=== PATIENT | female | born 1980 | race Caucasian/White ===

== ENCOUNTER → 2021-09-24 | Outpatient (CLI) | payer OTHER, SELFPAY ==
[2021-09-24 14:55] LABS: Absolute Lymphocyte Count 2.34 X10^3/uL (0.83-4.51); Absolute Neutrophil Count 7.6 X10^3/uL (2.0-7.7); Basophil# 0.06 X10^3/uL; Basophil% 0.5 % (0-1); Eosinophil# 0.15 X10^3/uL; Eosinophils% 1.4 % (0-5); Hematocrit 38.8 % (37-47); Hemoglobin 12.2 g/dL (12.0-15.0); Lymphocyte # 2.34 X10^3/ul (0.83-4.51); Lymphocyte % 21.4 % (19-41); Mean Corp Hgb Conc 31.4 g/dL (32-36); Mean Corpuscular Hgb 26.2 pg (27.0-32.0); Mean Corpuscular Volume 83.3 fL (81-99); Mean Platelet Vol. 10.6 fl (6.2-12.0); Monocyte# 0.75 X10^3/uL; Monocyte% 6.8 % (0-10); NRBC Flagged by Analyzer 0 % (0-5); Neutrophil # 7.61 X10^3/uL (2.7-7.7); Neutrophil % 69.5 % (47-70); Platelet Count 387 K/mm3 (150-450); RBC Distribution Width CV 13.5 % (11.6-14.6); RBC Distribution Width SD 41.4 fl (35.1-43.9); Red Blood Count 4.66 M/mm3 (4.2-5.4)
[2021-09-24 15:46] LABS: HIV - WCH Non-Reactive (Nonreactive); Hepatitis B Surface Antigen Non-Reactive (Nonreactive); Hepatitis C Antibody Non-Reactive (Nonreactive); Rubella IgG Reactive (Nonreactive); Syphilis Antibodies Non-reactive
[2021-09-27 22:06] LABS: Chlamydia By Nucleic Acid AMP Negative (Negative)
[2021-09-27 23:02] LABS: Gonococcus By Nucleic Acid AMP Negative (Negative)
[2021-10-01 16:20] LABS: HPV APTIMA, High Risk Negative (Negative)
== END | disposition home or self-care (01) ==
PROVIDERS: Visit Provider Student in an Organized Health Care Education/Training Program
DX: Z34.81 Encounter for supervision of other normal pregnancy, first trimester (principal); Z12.4 Encounter for screening for malignant neoplasm of cervix; Z11.3 Encounter for screening for infections with a predominantly sexual mode of transmission
CPT/HCPCS: 36415; 85025; 86703; 86762; 86780; 86803; 87086; 87088; 87340; 87491; 87591; 87624; 88175; G0145

== ENCOUNTER → 2022-02-11 | Outpatient (CLI) | payer OTHER, SELFPAY ==
[2022-02-11 16:52] LABS: Absolute Lymphocyte Count 1.65 X10^3/uL (0.83-4.51); Absolute Neutrophil Count 8.6 X10^3/uL (2.0-7.7); Basophil# 0.02 X10^3/uL; Basophil% 0.2 % (0-1); Eosinophil# 0.11 X10^3/uL; Hematocrit 33.5 % (37-47); Hemoglobin 10.7 g/dL (12.0-15.0); Lymphocyte # 1.65 X10^3/ul (0.83-4.51); Lymphocyte % 14.8 % (19-41); Mean Corp Hgb Conc 31.9 g/dL (32-36); Mean Corpuscular Hgb 26.8 pg (27.0-32.0); Mean Corpuscular Volume 83.8 fL (81-99); Mean Platelet Vol. 10.8 fl (6.2-12.0); Monocyte% 6.3 % (0-10); NRBC Flagged by Analyzer 0 % (0-5); Neutrophil # 8.58 X10^3/uL (2.7-7.7); Neutrophil % 77.2 % (47-70); Platelet Count 295 K/mm3 (150-450); RBC Distribution Width CV 14.5 % (11.6-14.6); RBC Distribution Width SD 44.1 fl (35.1-43.9); White Blood Count 11.1 K/mm3 (4.4-11.0)
[2022-02-11 17:01] LABS: Glucose Challenge Gest 1H 50g 161 mg/dL (70-140)
== END | disposition home or self-care (01) ==
PROVIDERS: Visit Provider Student in an Organized Health Care Education/Training Program
DX: Z34.83 Encounter for supervision of other normal pregnancy, third trimester (principal)
CPT/HCPCS: 36415; 82950; 85025

== ENCOUNTER → 2022-02-15 | Outpatient (CLI) | payer OTHER, SELFPAY ==
[2022-02-15 09:17] LABS: Glucose GTT-Gestation. Fasting 92 mg/dL (<105)
[2022-02-15 11:37] LABS: Glucose GTT-Gestational 1 Hr 192 mg/dL (<190)
[2022-02-15 11:39] LABS: Glucose GTT-Gestational 2 Hr 165 mg/dL (<165)
[2022-02-15 14:14] LABS: Glucose GTT-Gestational 3 Hr 110 L (<145)
== END | disposition home or self-care (01) ==
PROVIDERS: Visit Provider Student in an Organized Health Care Education/Training Program
DX: Z34.83 Encounter for supervision of other normal pregnancy, third trimester (principal)
CPT/HCPCS: 36415; 82951; 82952

== ENCOUNTER → 2022-03-10 | Outpatient (CLI) | payer OTHER, SELFPAY | END | disposition home or self-care (01) | LOC: WOBLAB 14:14 | PROVIDERS: Visit Provider Obstetrics & Gynecology | DX: Z67.91 Unspecified blood type, Rh negative (principal) | CPT/HCPCS: 36415; 86850 ==

== ENCOUNTER → 2022-04-29 | Outpatient (CLI) | payer OTHER, SELFPAY ==
[2022-04-29 17:13] LABS: Hematocrit 35.4 % (37-47); Hemoglobin 11.4 g/dL (12.0-15.0); Mean Corp Hgb Conc 32.2 g/dL (32-36); Mean Corpuscular Hgb 26.8 pg (27.0-32.0); Mean Corpuscular Volume 83.3 fL (81-99); Mean Platelet Vol. 10.2 fl (6.2-12.0); Platelet Count 289 K/mm3 (150-450); RBC Distribution Width CV 14.8 % (11.6-14.6); RBC Distribution Width SD 44.4 fl (35.1-43.9); Red Blood Count 4.25 M/mm3 (4.2-5.4); White Blood Count 9.5 K/mm3 (4.4-11.0)
[2022-04-29 18:09] LABS: Syphilis Antibodies Non-reactive
== END | disposition home or self-care (01) ==
LOC: WOBLAB 16:19
PROVIDERS: Visit Provider Student in an Organized Health Care Education/Training Program
DX: Z34.83 Encounter for supervision of other normal pregnancy, third trimester (principal); Z36.85 Encounter for antenatal screening for Streptococcus B
CPT/HCPCS: 36415; 85027; 86780; 87081

== ENCOUNTER 2022-05-15 10:22 | Inpatient (IN) | payer OTHER, SELFPAY ==
[2022-05-15] VITALS (17 sets, daily range): BP systolic 89–126; BP diastolic 56–72; PULSE 75–104; RESP 16–18; TEMP 36.5–37.4; O2SAT 95–100; BMI 43.5
[2022-05-15 10:18] LABS: ROM Internal Control Test YES-OK TO RESULT pt. (Internal QC)
[2022-05-15 10:19] LABS: ROM Patient Test POSITIVE (Negative)
[2022-05-15] MEDS: Lactated Ringers 1,000 ML 999 ML IV (10:25)
[2022-05-15] MEDS: Acetaminophen 500 MG Tablet 1000 MG PO ×3 (10:54→23:07)
[2022-05-15 11:00] LABS: Absolute Lymphocyte Count 1.06 X10^3/uL (0.83-4.51); Absolute Neutrophil Count 7.6 X10^3/uL (2.0-7.7); Basophil# 0.02 X10^3/uL; Basophil% 0.2 % (0-1); Eosinophil# 0.03 X10^3/uL; Eosinophils% 0.3 % (0-5); Hematocrit 35.8 % (37-47); Hemoglobin 11.5 g/dL (12.0-15.0); Lymphocyte # 1.06 X10^3/ul (0.83-4.51); Lymphocyte % 11.3 % (19-41); Mean Corp Hgb Conc 32.1 g/dL (32-36); Monocyte# 0.62 X10^3/uL; Monocyte% 6.6 % (0-10); NRBC Flagged by Analyzer 0 % (0-5); Neutrophil % 81.3 % (47-70); Platelet Count 258 K/mm3 (150-450); RBC Distribution Width SD 45.7 fl (35.1-43.9); Red Blood Count 4.26 M/mm3 (4.2-5.4); White Blood Count 9.4 K/mm3 (4.4-11.0)
--- NOTE | 2022-05-15 11:22 | PCM.HP.BLA ---
History and Physical Date of Admission: 05/15/22 Chief complaint: Leakage of fluid History present illness: 42-year-old at 38 weeks and 2 days MARGARET 05/27/2022 with leakage of clear fluid at 745 this morning. Denies headache, vision change, chest pain, shortness of breath, nausea vomit, right upper quadrant pain. Patient states good movement. is complicated by BMI 43, GDM A1, AMA, Rh- Obstetric history: G1: Current Past medical history: GDM A1 Medications: vitamin, aspirin Past surgical history: None Allergies: No known drug allergies Social history: Denies smoking, alcohol use, drug use Family history: Denies history DVT or PE Review of systems: Besides above pertinent positives a full review of systems was performed and found to be negative Physical exam: Vitals: Pulse 92 SPO2 96% on room air General: Normal-appearing no acute distress HEENT: Normocephalic/atraumatic no cervical of adenopathy Cardiac/respiratory: No use accessory muscles, nonlabored breathing Abdomen: Soft, nontender, gravid Extremities: No peripheral edema normal peripheral pulses Psych: Normal affect, demeanor nonpressured speech Labs: White blood cell count 9.4 hemoglobin 11.5 hematocrit 35.8% platelets 258. ROM positive Assessment and plan: 42-year-old G1, P0 at 38 weeks and 2 days with SROM and breech. Elects for primary section for breech. Patient stands risk of the procedure include but are not limited to visceral or vascular injury, prolonged hospitalization, blood loss and need for transfusion, reoperation. Patient state understanding wish to proceed. All questions were answered and consent was signed. 2 g Ancef IV now. 500 mg of azithromycin. BMI 43 GDM A1: Initial blood sugar 80s, will continue to follow and follow-up AMA Rh-
[2022-05-15 11:25] LABS: Bedside Glucose 81 mg/dL (74-106)
[2022-05-15] MEDS: Lactated Ringers 1,000 ML 150 ML IV (11:27)
[2022-05-15] MEDS: Cefazolin 2 GM in 0.9% Normal Saline 100 ML IV (11:30)
[2022-05-15 11:34] LABS: Syphilis Antibodies Non-reactive
--- NOTE | 2022-05-15 12:27 | OP.PCM_ITS ---
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 Uterus with 4 cm anterior fundal fibroid midline. Otherwise normal uterus, tubes, and ovaries. Consent: Patient arrived with spontaneous rupture of membranes and breech presentation elects for primary section Via Pfannenstiel incision. Patient understands the risk of the procedure include but are not limited to visceral or vascular injury, prolonged hospitalization, blood loss and need for transfusion, reoperation. Patient state understanding wish to proceed. All questions were answered and consent was signed. Procedure: Patient was brought back to the OR where spinal anesthesia was found to be adequate. 2 g of Ancef and 500 mg of azithromycin were given for infection prophylaxis. Patient was prepared and draped in a supine position with leftward tilt. A Pfannenstiel incision was made at the skin with a scalpel. The incision was carried down to the fascia with a scalpel. The fascia was excised extended laterally. Rectus muscle was dissected the midline down to the level of the pubic symphysis. Preperitoneal fatty tissue was noted and peritoneum was entered bluntly. Peritoneum was extended superiorly and inferiorly with good visualization of bladder. Bladder blade was inserted and vesicouterine peritoneum was identified. Low transverse hysterotomy incision was made. Hand was placed in the incision, bladder blade was removed and baby was delivered in standard breech fashion. Cord was clamped and cut. Baby handed off to nursing. Placenta was delivered via cord traction and fundal massage intact. IV oxytocin was initiated in order to facilitate uterine contractions. Uterus was exteriorized and wiped out with dry laparotomy sponge in order to remove remaining placental membranes. Uterus was closed in a continuous running fashion. Good hemostasis was noted. Uterus was placed back in the abdominal cavity and the incision was reinspected, good hemostasis was noted. Emerald was placed over the hysterotomy. Good hemostasis was noted. Fascia was closed in a continuous running fashion with PDS suture. Subcutaneous irrigation was performed. Good hemostasis was achieved with a Bovie. Skin was closed in a subcuticular fashion. All counts were correct x2. Patient tolerated procedure well and was brought to recovery in stable condition.
[2022-05-15] MEDS: Oxytocin 15 Units/NS 250ml 15 UNITS/250 ML IV.SOLN 83 UNITS IV (12:30)
[2022-05-15] MEDS: Ketorolac 30 MG/ML Syringe IM ×2 (13:43→19:15)
[2022-05-15 13:56] LABS: Bedside Glucose 82 mg/dL (74-106)
[2022-05-15] MEDS: Lactated Ringers 1,000 ML 100 ML IV (14:46)
[2022-05-15] MEDS: Ferrous Sulfate 325 MG Tablet PO (20:08)
[2022-05-16] MEDS: Enoxaparin 40 MG/0.4 ML Syringe SC (00:01)
[2022-05-16] MEDS: Ketorolac 30 MG/ML Syringe IM ×2 (01:14→07:48)
[2022-05-16] MEDS: 0.9% Saline Lock 10 ML Syringe IV (01:15)
[2022-05-16 01:25] VITALS: BP 103/60; PULSE 71; RESP 18; TEMP 36.8; O2SAT 96
[2022-05-16 04:40] VITALS: BP 108/59; PULSE 78; RESP 16; TEMP 36.7; O2SAT 97
[2022-05-16] MEDS: Acetaminophen 500 MG Tablet 1000 MG PO ×3 (04:53→17:58)
[2022-05-16 05:04] LABS: Hematocrit 32.8 % (37-47); Hemoglobin 10.5 g/dL (12.0-15.0); Mean Corpuscular Hgb 27.1 pg (27.0-32.0); Mean Corpuscular Volume 84.5 fL (81-99); Mean Platelet Vol. 9.9 fl (6.2-12.0); Platelet Count 239 K/mm3 (150-450); RBC Distribution Width CV 14.9 % (11.6-14.6); RBC Distribution Width SD 45.5 fl (35.1-43.9); Red Blood Count 3.88 M/mm3 (4.2-5.4); White Blood Count 10.2 K/mm3 (4.4-11.0)
[2022-05-16 05:16] LABS: Bedside Glucose 96 mg/dL (74-106)
[2022-05-16 07:50] VITALS: BP 98/63; PULSE 78; RESP 20; TEMP 36.7
--- NOTE | 2022-05-16 09:40 | PN.OBGYN_ITS ---
Subjective Subjective No overnight complaints Objective Data Objective Data Vital Signs: Vital Signs Temp Pulse Resp BP Pulse Ox O2 Del Method 98.1 F 78 20 H 98/63 97 Room Air 05/16/22 07:50 05/16/22 07:50 05/16/22 07:50 05/16/22 07:50 05/16/22 04:40 05/16/22 04:40 Oxygen Delivery Method Room Air Weight: 238 lb 4 oz Body Mass Index (BMI) 43.5 Intake & Output: Intake and Output for Last 24 Hours 05/14/22 05/15/22 05/16/22 22:59 23:59 23:59 Intake Total Output Total 1050 / 1050 Balance -1050 / -1050 Lab / Micro Data Result Diagrams: 05/16/22 04:50 Labs: Laboratory Results - last 24 hr 05/15/22 09:45: Vag Amniotic Fld Detect POSITIVE H 05/15/22 10:40: WBC 9.4, RBC 4.26, Hgb 11.5 L, Hct 35.8 L, MCV 84.0, MCH 27.0, MCHC 32.1, RDW Std Deviation 45.7 H, RDW Coeff of Vishal 15.0 H, Plt Count 258, MPV 10.0, Immature Gran % (Auto) 0.300, Neut % (Auto) 81.3 H, Lymph % (Auto) 11.3 L, [place] % (Auto) 6.6, Eos % (Auto) 0.3, Baso % (Auto) 0.2, Absolute Neuts (auto) 7.6, Absolute Lymphs (auto) 1.06, Nucleated RBC % 0 05/15/22 10:40: Syphilis Total Ab Non-reactive 05/15/22 11:03: Blood Type A NEGATIVE, Antibody Screen TNP 05/15/22 11:03: Antibody Screen NEGATIVE 05/15/22 11:04: POC Glucose 81 05/15/22 13:33: POC Glucose 82 05/16/22 04:48: POC Glucose 96 05/16/22 04:50: WBC 10.2, RBC 3.88 L, Hgb 10.5 L, Hct 32.8 L, MCV 84.5, MCH 27.1, MCHC 32.0, RDW Std Deviation 45.5 H, RDW Coeff of Vishal 14.9 H, Plt Count 239, MPV 9.9 Physical Exam Const alert, oriented x3, no apparent distress, average body habitus, healthy appearing and well nourished HEENT normocephalic and moist oral mucous membranes Eyes PERRL Neck full ROM Resp normal respiratory effort, no retractions and no use of accessory muscles GI GI Narrative: Soft, nontender, bandage clean dry and intact Extremity normal to inspection and full ROM Neuro moves all extremities and no focal motor deficits Psych mental status grossly normal, affect normal, speech normal and activity/motor behavior normal Assessment & Plan (1) delivery delivered: PLAN: Postop day 1 status post primary section for SROM and breech. Pain well controlled. Formula feeding. Likely discharge home tomorrow
[2022-05-16] MEDS: Senna/Docusate Sodium 1 Tablet PO (12:17)
[2022-05-16] MEDS: Ibuprofen 600 MG Tablet PO ×2 (12:17→17:58)
[2022-05-16 14:30] VITALS: BP 101/70; PULSE 78; RESP 16; TEMP 36.3
[2022-05-16] MEDS: Ferrous Sulfate 325 MG Tablet PO (17:59)
[2022-05-16] MEDS: oxyCODONE 5 MG Tablet PO (18:41)
[2022-05-16 19:49] VITALS: BP 112/72; PULSE 82; RESP 16; TEMP 36.8; O2SAT 98
[2022-05-17] MEDS: Ibuprofen 600 MG Tablet PO ×5 (00:03→23:26)
[2022-05-17] MEDS: Acetaminophen 500 MG Tablet 1000 MG PO ×5 (00:03→23:26)
[2022-05-17] MEDS: Enoxaparin 40 MG/0.4 ML Syringe SC ×2 (00:04→23:26)
[2022-05-17] MEDS: oxyCODONE 5 MG Tablet PO ×5 (00:42→23:34)
[2022-05-17 02:21] VITALS: BP 125/83; PULSE 75; RESP 16; TEMP 36.2; O2SAT 96
[2022-05-17 08:58] VITALS: BP 103/71; PULSE 79; RESP 16; TEMP 36.8; O2SAT 96
--- NOTE | 2022-05-17 09:37 | PCM.PN.OB ---
Subjective Subjective Patient with mild incisional pain overnight. Overall ambulating and tolerating regular diet Objective Data Objective Data Vital Signs: Vital Signs Temp Pulse Resp BP Pulse Ox O2 Del Method 98.2 F 79 16 103/71 96 Room Air 05/17/22 08:58 05/17/22 08:58 05/17/22 08:58 05/17/22 08:58 05/17/22 08:58 05/17/22 08:58 Oxygen Delivery Method Room Air Weight: 238 lb 4 oz Body Mass Index (BMI) 43.5 Intake & Output: Intake and Output for Last 24 Hours 05/15/22 05/16/22 05/17/22 23:59 23:59 23:59 Intake Total Output Total 1050 / 1050 Balance -1050 / -1050 Lab / Micro Data Result Diagrams: 05/16/22 04:50 Physical Exam Const alert, oriented x3, no apparent distress, average body habitus, healthy appearing and well nourished HEENT normocephalic and moist oral mucous membranes Eyes PERRL Neck full ROM Resp normal respiratory effort, no retractions and no use of accessory muscles GI GI Narrative: Soft, nontender, bandage clean dry and intact. Negative rebound tenderness or guarding Extremity normal to inspection and full ROM Neuro moves all extremities and no focal motor deficits Psych mental status grossly normal, affect normal, speech normal and activity/motor behavior normal Assessment & Plan (1) delivery delivered: PLAN: Postop day 2 status post primary section for breech. Formula feeding. Educated patient on pain control after section. Overall appropriately tender and ambulating, tolerating regular diet. Likely discharge home tomorrow
[2022-05-17] MEDS: Senna/Docusate Sodium 1 Tablet PO (10:31)
[2022-05-17 14:00] VITALS: BP 113/71; PULSE 74; RESP 16; TEMP 36.7
[2022-05-17] MEDS: Ferrous Sulfate 325 MG Tablet PO ×2 (19:02)
[2022-05-17 20:41] VITALS: BP 107/66; PULSE 87; RESP 16; TEMP 36.4; O2SAT 97
[2022-05-18 02:49] VITALS: BP 106/73; PULSE 94; RESP 16; TEMP 36.1; O2SAT 96
[2022-05-18] MEDS: Ibuprofen 600 MG Tablet PO (05:05)
[2022-05-18] MEDS: Acetaminophen 500 MG Tablet 1000 MG PO (05:05)
[2022-05-18] MEDS: oxyCODONE 5 MG Tablet PO (05:06)
--- NOTE | 2022-05-18 07:28 | PCM.DC.BLA ---
Discharge Summary Date of Admission: 05/15/22 Date of Discharge: 05/18/22 Summary: Patient arrived on 05/15/2022 with spontaneous rupture of membranes. Subsequently delivered via primary section for breech on 05/15/2022. Overall routine postoperative recovery. Discharge home on 05/18/2022 Meaningful Use Info Meaningful Use Diagnoses (Choose all that apply): None applicable Discharge Plan Admission Admit Date/Time: 05/15/22 10:22 Primary Reason for Your Visit: Spontaneous rupture membranes Attending Provider: Darryl Ordaz Primary Care Provider: Care PhysicianRachel Primary Instructions Additional Instructions / Restrictions: Regular diet. Okay to shower. No tub baths for 2 weeks. No intercourse for 6 weeks. No lifting over 25 pounds for 2 to 3 weeks call if fevers, chills, chest pain, shortness of breath. Follow-up 2 weeks postoperatively Discharge Orders/Prescriptions Prescriptions: New oxycodone 5 mg tablet 5 mg PO Q6H PRN (Reason: pain (scale score 7-10)) 4 Days Qty: 16 0RF Continued ferrous sulfate [Iron (ferrous sulfate)] 325 mg (65 mg iron) Tablet 325 mg PO QODAY Discontinued Aspir-81 81 mg tablet 81 mg OTHER 1XD Referrals / Follow Up: Care Physician,No Primary [Primary Care Provider] - Disposition Disposition (needs filled in before D/C Order can be placed): Home, Self Care
--- NOTE | 2022-05-18 07:29 | PCM.PN.OB ---
Subjective Subjective No overnight complaints. Patient states pain well controlled Objective Data Objective Data Vital Signs: Vital Signs Temp Pulse Resp BP Pulse Ox O2 Del Method 97.0 F L 94 16 106/73 96 Room Air 05/18/22 02:49 05/18/22 02:49 05/18/22 02:49 05/18/22 02:49 05/18/22 02:49 05/18/22 02:49 Oxygen Delivery Method Room Air Weight: 238 lb 4 oz Body Mass Index (BMI) 43.5 Intake & Output: Intake and Output for Last 24 Hours 05/16/22 05/17/22 05/18/22 23:59 23:59 23:59 Output Total 1050 / 1050 Balance -1050 / -1050 Lab / Micro Data Result Diagrams: 05/16/22 04:50 Physical Exam Const alert, oriented x3, no apparent distress, average body habitus, healthy appearing and well nourished HEENT normocephalic and moist oral mucous membranes Eyes PERRL Neck full ROM Resp normal respiratory effort, no retractions and no use of accessory muscles GI GI Narrative: Soft, nontender, bandage clean dry and intact Extremity normal to inspection and full ROM Neuro moves all extremities and no focal motor deficits Psych mental status grossly normal, affect normal, speech normal and activity/motor behavior normal Assessment & Plan (1) delivery delivered: PLAN: Postop day 3 status post primary section for breech. No overnight complaints. Pain well controlled. Okay to discharge home today
[2022-05-18 07:55] VITALS: BP 105/71; PULSE 68; RESP 16; TEMP 36.1; O2SAT 97
== END 2022-05-18 11:05 | disposition home or self-care (01) | DRG 788 ==
LOC: WPOUT 10:23 → WP 10:23
PROVIDERS: Admitting Provider Obstetrics & Gynecology; Referring Provider Obstetrics & Gynecology; Visit Provider Obstetrics & Gynecology
DX: O32.1XX0 Maternal care for breech presentation, not applicable or unspecified (principal); O24.429 Gestational diabetes mellitus in childbirth, unspecified control; Z37.0 Single live birth; Z3A.38 38 weeks gestation of pregnancy
CPT/HCPCS: 59025; 59050; 82962; 84112; 85025; 85027; 86780; 86850; 86900; 86901; 99221; J7120; A4216; G0378; J2405

== ENCOUNTER → 2022-07-22 | Outpatient (CLI) | payer OTHER, SELFPAY ==
[2022-07-22 11:05] LABS: Glucose 2 Hour Postprandial 106 mg/dL (<140)
== END | disposition home or self-care (01) ==
LOC: WOBLAB 08:35
PROVIDERS: Visit Provider Student in an Organized Health Care Education/Training Program
DX: O24.410 Gestational diabetes mellitus in pregnancy, diet controlled (principal)
CPT/HCPCS: 36415; 82950

== ENCOUNTER → 2024-01-24 | Outpatient (CLI) | payer OTHER, SELFPAY ==
[2024-01-24 12:39] LABS: hCG Titer Quant., Serum 4 mIU/mL (1-3)
[2024-01-31 07:09] LABS: HPV APTIMA, High Risk Negative (Negative)
== END | disposition home or self-care (01) ==
LOC: BWCLAB 09:05
PROVIDERS: Referring Provider Obstetrics & Gynecology; Visit Provider Obstetrics & Gynecology
DX: O03.9 Complete or unspecified spontaneous abortion without complication (principal); Z12.4 Encounter for screening for malignant neoplasm of cervix
CPT/HCPCS: 36415; 84702; 86850; 86900; 86901; 87624; 88175; G0145

== ENCOUNTER → 2024-02-16 | Outpatient (CLI) | payer OTHER, SELFPAY ==
--- NOTE | 2024-02-16 12:46 | US_ITS ---
STUDY: ULTRASOUND OF THE FEMALE PELVIS - COMPLETE REASON FOR EXAM: Female, 43 years old. fibroid LMP: TECHNIQUE: Transabdominal and transvaginal TECHNICAL QUALITY: Adequate. COMPARISON: None. FINDINGS: The uterus is anteverted and is in a midline position. The uterus measures 11.8 x 5.2 x 4.5 cm. Normal uterine cervix. The endometrium measures 9.5 mm in thickness, and is hyperechoic. There is no demonstrated endometrial mass. There are 2 fibroids measuring 1.5 x 1.5 x 1.2 cm and 1.5 x 1.6 x 1.2 cm. I.U.D. - The patient does not have an I.U.D. The right ovary is visualized. The right ovary measures 2.5 x 2.9 x 2.5 cm. There is no right ovarian cyst or ovarian mass. There is no visualized right adnexal mass or complex lesion. There is normal arterial and normal venous vascularity. The left ovary is visualized. The left ovary measures 2.1 x 2.1 x 1.5 cm. There is no left ovarian cyst or ovarian mass. There is no visualized left adnexal mass or complex lesion. There is normal arterial and normal venous vascularity. There is no fluid in the cul-de-sac. US/Pelvic w/ Transvaginal IMPRESSION: Mildly enlarged uterus with 2 small intrauterine fibroids Electronically Signed: Taz Marques MD at 23:03 EST ,
== END | disposition home or self-care (01) ==
LOC: US 12:45
PROVIDERS: Referring Provider Obstetrics & Gynecology; Visit Provider Obstetrics & Gynecology
DX: D25.9 Leiomyoma of uterus, unspecified (principal)
CPT/HCPCS: 76830; 76856